=== PATIENT | female | born 1970 | race Caucasian/White ===

== ENCOUNTER 2017-12-08 17:28 | Emergency (ER) | payer MEDICARE, OTHER ==
[~2017-12-08] VITALS: Ht 157.5 cm; Wt 77.1 kg
[~2017-12-08 17:28] MED LIST: ACET325T9 PO; HYDR-971 PO; META-21 PO; NAPR220C4 PO
--- NOTE | 2017-12-08 17:39 | ED.ADGEN ---
Past History Past Medical History: No Pertinent History, Anxiety, Arthritis, Depression Past Surgical History: No Surgical History Smoking: Greater than 1 pack/day Alcohol Use: Rarely Drug Use: None Adult General Chief Complaint Chief Complaint " .. I have chronic back pain.. but I moved.. and loss my pills.. HPI HPI Patient is a 46 year old female who presents with above hx and complaints of back pain rated 10/10. Pt. has chronic pain. Pt. normally follows with Dr. Thorne. Pt. denies fever, immunosuppression, IV drug use or cancer. Pt. complaining of lumbar muscle spasm. Patient does continue to smoke. No problems with defecation or urination. Review of Systems Review of Systems Constitutional: Denies fever or chills [] Eyes: Denies change in visual acuity, redness, or eye pain [] HENT: Denies nasal congestion or sore throat [] Respiratory: Denies cough or shortness of breath [] Cardiovascular: No additional information not addressed in HPI [] GI: Denies abdominal pain, nausea, vomiting, bloody stools or diarrhea [] : Denies dysuria or hematuria [] Musculoskeletal: Complaints of lumbar back pain Integument: Denies rash or skin lesions [] Neurologic: Denies headache, focal weakness or sensory changes [] Endocrine: Denies polyuria or polydipsia [] All other systems were reviewed and found to be within normal limits, except as documented in this note. Family History Family History Noncontributory Current Medications Current Medications Current Medications Medications (Trade) Dose Ordered Sig/Josh Start Time Stop Time Status Last Admin Dose Admin Ketorolac Tromethamine (Toradol) 60 mg 1X ONCE 12/08/17 19:15 12/08/17 19:16 DC 12/08/17 19:55 60 MG Methylprednisolone Acetate (DEPO-Medrol IM) 40 mg 1X ONCE 12/08/17 19:15 12/08/17 19:16 DC 12/08/17 19:55 40 MG Morphine Sulfate (Morphine 10mg Syringe) 10 mg 1X ONCE 12/08/17 19:00 12/08/17 19:04 DC 12/08/17 19:56 10 MG Orphenadrine Citrate (Norflex) 60 mg 1X ONCE 12/08/17 19:15 12/08/17 19:16 DC 12/08/17 19:55 60 MG Allergies Allergies Allergies Coded Allergies Type Severity Reaction Last Updated Verified No Known Drug Allergies 12/08/17 No Physical Exam Physical Exam Constitutional: Moderately acute distress, non-toxic appearance. [] HENT: Normocephalic, atraumatic, bilateral external ears normal, oropharynx moist, no oral exudates, nose normal. [] Eyes: PERRLA, EOMI, conjunctiva normal, no discharge. [] Neck: Normal range of motion, no tenderness, supple, no stridor. [] Cardiovascular:Heart rate regular rhythm, no murmur [] Lungs & Thorax: Bilateral breath sounds equal at apexes with scattered wheezes on auscultation [] Abdomen: Bowel sounds normal, soft, no tenderness, no masses, no pulsatile masses. Old scars. Skin: Warm, dry, no erythema, no rash. [] Back: Lumbar para spinal Muscle tenderness, Old surgery scar, , no CVA tenderness. [] Extremities: No tenderness, no cyanosis, no clubbing, ROM intact, no edema. 30 changes Neurologic: Alert and oriented X 3, normal motor function, normal sensory function, no focal deficits noted. []DTRs +2 at patella. Patient is ambulatory. Psychologic: Anxious, , judgement normal, mood normal. [] Current Patient Data Vital Signs Vital Signs Date Time Temp Pulse Resp B/P (MAP) Pulse Ox O2 Delivery O2 Flow Rate FiO2 12/08/17 20:10 94 18 142/85 (104) 96 Room Air 12/08/17 17:40 98.3 Lab Results Laboratory Tests Test 12/08/17 17:12 12/08/17 18:00 POC Urine HCG, Qualitative hcg negative (Negative) Urine Collection Type Unknown Urine Color Yellow Urine Clarity Hazy Urine pH 6.0 Urine Specific [place] 1.010 Urine Protein Neg (NEG-TRACE) Urine Glucose (UA) Neg mg/dL (NEG) Urine Ketones (Stick) Neg mg/dL (NEG) Urine Blood Trace (NEG) Urine Nitrite Neg (NEG) Urine Bilirubin Neg (NEG) Urine Urobilinogen Dipstick 0.2 mg/dL (0.2 mg/dL) Urine Leukocyte Esterase Neg (NEG) Urine RBC 3-5 /HPF (0-2) Urine WBC 1-4 /HPF (0-4) Urine Squamous Epithelial Cells Many /LPF Urine Bacteria Mod /HPF (0-FEW) Urine Mucus Mod /LPF Urine Opiates Screen Neg (NEG) Urine Methadone Screen Neg (NEG) Urine Barbiturates Neg (NEG) Urine Phencyclidine Screen Neg (NEG) Urine Amphetamine/Methamphetamine Neg (NEG) Urine Benzodiazepines Screen Pos (NEG) Urine Cocaine Screen Neg (NEG) Urine Cannabinoids Screen Neg (NEG) Urine Ethyl Alcohol Neg (NEG) EKG EKG [] Radiology/Procedures Radiology/Procedures I interpretation of x-ray shows no obvious fracture or acute changes in hardware from previous x-rays on file[] Course & Med Decision Making Course & Med Decision Making Pertinent Labs and Imaging studies reviewed. (See chart for details). Further pain meds must be filled through her primary care. Take Tylenol and ibuprofen for pain. For severe pain may take Vicoprofen up 4 times a day. Patient take Flexeril for muscle spasms. [] Final Impression Final Impression 1. Hx. Chronic Back Pain[] Problems: Dragon Disclaimer Dragon Disclaimer This electronic medical record was generated, in whole or in part, using a voice recognition dictation system. YOLANDA WELLER MD Dec 08, 2017 17:39
[2017-12-08 18:55] LABS: AMPHETAMINE/METHAMPHETAMINE NEG (NEG); BARBITURATES NEG (NEG); BENZODIAZEPINES POS (NEG); CANNABINOIDS NEG (NEG); COCAINE NEG (NEG); METHADONE NEG (NEG); OPIATES NEG (NEG); PHENCYCLIDINE NEG (NEG)
[2017-12-08] MEDS ORDERED: MORPHINE SULFATE 10 MG/ML SYRINGE. SQ ONE (19:00)
[2017-12-08 19:11] LABS: BILIRUBIN,URINE NEG (NEG); CLARITY,URINE HAZY; COLOR,URINE YELLOW; GLUCOSE,URINE NEG (NEG)
[2017-12-08 19:12] LABS: BACTERIA,URINE MOD /HPF (0-FEW); NITRITE,URINE NEG (NEG); SQUAMOUS EPITHELIAL CELL,UR MANY /LPF; UROBILINOGEN,URINE 0.2 mg/dL (0.2 mg/dL)
[2017-12-08] MEDS ORDERED: methylPREDNISolone ACETATE 40 MG/ML VIAL. IM ONE (19:15)
[2017-12-08] MEDS ORDERED: ORPHENADRINE CITRATE 60 MG/2 ML VIAL. IM ONE (19:15)
[2017-12-08] MEDS ORDERED: KETOROLAC 60 MG/2 ML VIAL. IM ONE (19:15)
[2017-12-08] MEDS ORDERED: CYCL-331 PO (19:23)
[2017-12-08] MEDS ORDERED: HYDR-79 PO (19:23)
[2017-12-08 20:10] VITALS: BP 142/85
--- NOTE | 2017-12-09 10:07 | RAD ---
LUMBAR SPINE 2-3V Clinical Indication: fall, prior back surgery Comparison: Lumbar radiographs dated 01/17/2007, CT lumbar spine dated 11/26/2014 Findings: There are 5 nonrib-bearing lumbar-type vertebral bodies. T12 riblet better evaluated on prior CT. Postsurgical changes of L5-S1 posterior fusion. No evidence of hardware failure. The normal lumbar lordosis is maintained. 0.5 cm anterolisthesis of L4 on L5, progressed compared to prior CT. Vertebral body heights are maintained. Mild multilevel degenerative changes of the visualized spine. Cholecystectomy clips. Vascular calcifications. IMPRESSION: 1. No acute fracture. 2. 0.5 cm anterolisthesis of L4 on L5, progressed compared to prior CT. 3. Post surgical changes of L5-S1 posterior fusion. No evidence of hardware failure.
== END 2017-12-08 20:10 | disposition home or self-care (01) ==
LOC: ER 17:28
DX: G89.29 Other chronic pain (principal); M54.5 Low back pain; M19.90 Unspecified osteoarthritis, unspecified site; F41.9 Anxiety disorder, unspecified; F32.9 Major depressive disorder, single episode, unspecified; F17.200 Nicotine dependence, unspecified, uncomplicated
CPT/HCPCS: 36415; 72100; 80307; 81001; 81025; 87086; 96372; 99285; J1030; J1885; J2270; J2360; G0479

== ENCOUNTER 2018-03-23 16:49 | Emergency (ER) | payer MEDICARE, OTHER ==
[~2018-03-23] VITALS: Ht 157.5 cm; Wt 77.1 kg
[~2018-03-23 16:49] MED LIST changes: +CYCL-331 PO; +HYDR-79 PO
--- NOTE | 2018-03-23 17:40 | PHYS DOC ---
Past History Past Medical History: No Pertinent History, Anxiety, Arthritis, Depression Past Surgical History: Other Smoking: Greater than 1 pack/day Alcohol Use: None Drug Use: None Adult General Chief Complaint Chief Complaint: FOOT INJURY PAIN HPI HPI Patient is a 47 year old female who presents with complaint of right lower extremity pain. Patient states he days ago she was playing with her grandchildren and states that she jumped into a pool but did not realize she was jumping in the shallow end. Patient states that she struck the bottom of her foot on the pool floor. Patient states that she has been having pain in her right foot that radiates up both sides of her lower leg towards her knee. Patient states that she has been able to ambulate but states she walks with a limp. Patient states that the pain worsens at night time. Patient states she's been taking Tylenol and ibuprofen at home with no relief in symptoms. Patient denies any other injuries. Patient rates pain currently as 8 out of 10 on my evaluation. Review of Systems Review of Systems Constitutional: Denies fever or chills [] Eyes: Denies change in visual acuity, redness, or eye pain [] HENT: Denies nasal congestion or sore throat [] Respiratory: Denies cough or shortness of breath [] Cardiovascular: Denies chest pain or edema[] GI: Denies abdominal pain, nausea, vomiting, bloody stools or diarrhea [] : Denies dysuria or hematuria [] Musculoskeletal: Right foot and lower leg pain[] Integument: Denies rash or skin lesions [] Neurologic: Denies headache, focal weakness or sensory changes [] All other systems were reviewed and found to be within normal limits, except as documented in this note. Allergies Allergies Allergies Coded Allergies Type Severity Reaction Last Updated Verified No Known Drug Allergies 12/08/17 No Physical Exam Physical Exam Constitutional: Alert, afebrile, appears in minimal discomfort. [] HENT: Normocephalic, atraumatic, bilateral external ears normal, oropharynx moist, no oral exudates, nose normal. [] Eyes: PERRLA, EOMI, conjunctiva normal, no discharge. [] Neck: Normal range of motion, no tenderness, supple, no stridor. [] Cardiovascular:Heart rate regular rhythm, no murmur [] Lungs & Thorax: Bilateral breath sounds clear to auscultation [] Abdomen: Bowel sounds normal, soft, no tenderness, no masses, no pulsatile masses. [] Skin: Warm, dry, no erythema, no rash. [] Back: No tenderness, no CVA tenderness. [] Extremities: No obvious deformity to right lower leg or ankle, nonlocalizing tenderness along bilateral malleoli, dorsum of foot, and medial and lateral aspects of the lower leg, no ecchymosis, no swelling, right Achilles tendon intact. [] Neurologic: Alert and oriented X 3, normal motor function, normal sensory function, no focal deficits noted. [] Current Patient Data Vital Signs Vital Signs Date Time Temp Pulse Resp B/P (MAP) Pulse Ox O2 Delivery O2 Flow Rate FiO2 03/23/18 17:35 98.4 121 20 97 Room Air Lab Results Laboratory Tests Test 03/23/18 17:29 Bedside Urine HCG, Qualitative hcg negative EKG EKG Not performed[] Radiology/Procedures Radiology/Procedures Two-view right tibia and fibula x-ray interpreted by me: No fractures, normal alignment, normal soft tissue 3 view right foot x-ray interpreted by me: No fractures, normal alignment, normal soft tissue[] Course & Med Decision Making Course & Med Decision Making Pertinent Labs and Imaging studies reviewed. (See chart for details) X-rays negative for fracture. Symptoms appear consistent with foot contusion. Advised to continue Tylenol as needed. Patient prescribed Naprosyn to take twice daily for the next 5-7 days. Advised follow-up in 1 week with primary doctor for reevaluation and return to emergency department for any worsening symptoms. Patient was understanding and in agreement with treatment plan. Dragon Disclaimer Dragon Disclaimer This electronic medical record was generated, in whole or in part, using a voice recognition dictation system. Departure Departure: Impression: Primary Impression: Foot contusion Disposition: HOME, SELF-CARE Condition: IMPROVED Referrals: FORREST RIVER MD (PCP) Patient Instructions: Foot Contusion Additional Instructions: Follow-up the primary doctor in 1 week for reevaluation. Return to emergency department for any worsening symptoms. Scripts Naproxen (NAPROSYN) 500 Mg Tablet 1 TAB PO BID, #20 TAB 0 Refills Prov: CELE HAND MD 03/23/18 Problem Qualifiers Primary Impression: Foot contusion Encounter type: initial encounter Laterality: right Qualified Codes: S90.31XA - Contusion of right foot, initial encounter CELE HAND MD Mar 23, 2018 17:40
[2018-03-23 18:36] LABS: BACTERIA,URINE FEW /HPF (0-FEW); BILIRUBIN,URINE NEG (NEG); CLARITY,URINE CLEAR; COLOR,URINE YELLOW; GLUCOSE,URINE NEG (NEG); NITRITE,URINE NEG (NEG); SQUAMOUS EPITHELIAL CELL,UR OCC /LPF; UROBILINOGEN,URINE 0.2 mg/dL (0.2 mg/dL); WBC,URINE RARE /HPF (0-4)
[2018-03-23] MEDS ORDERED: NAPR-683 PO (18:36)
[2018-03-23 18:51] VITALS: BP 160/80
--- NOTE | 2018-03-23 18:54 | RAD ---
AP and lateral right tibia and fibula radiographs 03/23/2018 CLINICAL HISTORY: Right lower leg injury when jumping into pool earlier today. AP and lateral digital radiographs of the right tibia and fibula were obtained. No fracture or dislocation of the right tibia or fibula is seen. No radiopaque foreign body is noted. IMPRESSION: No fracture or dislocation of the right tibia or fibula is seen. Electronically signed by: Ovidio Lamb MD (03/23/2018 6:51 PM) [facility]
--- NOTE | 2018-03-23 22:46 | RAD ---
Three-view right foot radiographs 03/23/2018 CLINICAL HISTORY: Right foot injury after jumping into pool earlier today. AP, lateral and oblique digital radiographs of the right foot were obtained. Mild hallux valgus deformity is noted. Mild to moderate degenerative changes are seen involving the first MTP joint. No fracture or dislocation of the right foot is seen. IMPRESSION: No fracture or dislocation of the right foot is seen. Electronically signed by: Ovidio Lamb MD (03/23/2018 10:42 PM) [facility]
== END 2018-03-23 18:52 | disposition home or self-care (01) ==
LOC: ER 16:49
DX: S90.31XA Contusion of right foot, initial encounter (principal); F41.9 Anxiety disorder, unspecified; M19.90 Unspecified osteoarthritis, unspecified site; F32.9 Major depressive disorder, single episode, unspecified; F17.200 Nicotine dependence, unspecified, uncomplicated; W16.022A Fall into swimming pool striking bottom causing other injury, initial encounter; Y93.39 Activity, other involving climbing, rappelling and jumping off; Y92.34 Swimming pool (public) as the place of occurrence of the external cause; Y99.8 Other external cause status
CPT/HCPCS: 73590; 73630; 81001; 81025; 99285-25

== ENCOUNTER 2018-11-30 11:24 | Emergency (ER) | payer MEDICARE ==
[~2018-11-30] VITALS: Ht 157.5 cm; Wt 77.1 kg
[~2018-11-30 11:24] MED LIST changes: +HYDR-1179 PO; +HYDR-3165 PO; -HYDR-79 PO; -HYDR-971 PO; +NAPR-683 PO
[2018-11-30 11:30] VITALS: BP 163/105
--- NOTE | 2018-11-30 11:57 | PHYS DOC ---
Past History Past Medical History: No Pertinent History Past Surgical History: No Surgical History Smoking: Greater than 1 pack/day Alcohol Use: None Drug Use: None Adult General Chief Complaint Chief Complaint: HAND PROBLEM HPI HPI 47-year-old female presents with right hand pain. Patient states that she woke up this morning and had a right hand pain along her thumb. She does not have any idea why it hurts. She denies any trauma. She describes the pain as a cramping sensation. She has no previous history of problems with this hand. She denies fever or chills. She denies numbness or tingling. Review of Systems Review of Systems Constitutional: Denies fever or chills [] Eyes: Denies change in visual acuity, redness, or eye pain [] HENT: Denies nasal congestion or sore throat [] Respiratory: Denies cough or shortness of breath [] Cardiovascular: No additional information not addressed in HPI [] GI: Denies abdominal pain, nausea, vomiting, bloody stools or diarrhea [] : Denies dysuria or hematuria [] Musculoskeletal: right hand pain[] Integument: Denies rash or skin lesions [] Neurologic: Denies headache, focal weakness or sensory changes [] Endocrine: Denies polyuria or polydipsia [] All other systems were reviewed and found to be within normal limits, except as documented in this note. Allergies Allergies Allergies Coded Allergies Type Severity Reaction Last Updated Verified No Known Drug Allergies 12/08/17 No Physical Exam Physical Exam Constitutional: Well developed, well nourished, no acute distress, non-toxic appearance. [] HENT: Normocephalic, atraumatic, bilateral external ears normal, oropharynx moist, no oral exudates, nose normal. [] Eyes: PERRLA, EOMI, conjunctiva normal, no discharge. [] Neck: Normal range of motion, no tenderness, supple, no stridor. [] Cardiovascular:Heart rate regular rhythm, no murmur [] Lungs & Thorax: Bilateral breath sounds clear to auscultation [] Abdomen: Bowel sounds normal, soft, no tenderness, no masses, no pulsatile masses. [] Skin: Warm, dry, no erythema, no rash. [] Back: No tenderness, no CVA tenderness. [] Extremities: Tenderness over thenar eminance and along the anotomical snuff box of right thumb. [] Neurologic: Alert and oriented X 3, normal motor function, normal sensory function, no focal deficits noted. [] Psychologic: Affect normal, judgement normal, mood normal. [] Current Patient Data Vital Signs Vital Signs Date Time Temp Pulse Resp B/P (MAP) Pulse Ox O2 Delivery O2 Flow Rate FiO2 11/30/18 11:30 98.8 120 18 99 Room Air EKG EKG [] Radiology/Procedures Radiology/Procedures [] Impressions: Right hand, 3 views, 11/30/2018: HISTORY: Hand pain, finger numbness No fracture or dislocation is identified. No significant arthritic change is seen. The soft tissues are unremarkable. IMPRESSION: No significant right hand abnormality is detected. Electronically signed by: Jake Enriquez MD (11/30/2018 12:05 PM) [facility] DICTATED AND SIGNED BY: JAKE ENRIQUEZ MD DATE: 11/30/18 1200 CC: PADMINI DANIELS DO; PCP,NO ~ Course & Med Decision Making Course & Med Decision Making Pertinent Labs and Imaging studies reviewed. (See chart for details) The patient's x-rays negative for fracture dislocation. Based on the history and physical exam, patient appears to be having to be de Quervain's tendinitis. She appears to be in a significant amount of pain. I will give her [place] 5/325. I reviewed the drug contract and database the patient appears to have chronic morphine prescribed for her. The prescriptions are consistent and so was the prescriber. He doesn't believe that her current pain is new. I will give her 10 [place] 5/325 for this new pain in addition to her already prescribed medications. I also advised the patient take ibuprofen 600 mg 3 times a day for the next several days as this is most likely to improve her condition. She will follow up with her PCP as needed to consider a steroid injection. [] Dragon Disclaimer Dragon Disclaimer This electronic medical record was generated, in whole or in part, using a voice recognition dictation system. Departure Departure: Impression: Primary Impression: De Querdominickin's tenosynovitis, right Disposition: 01 HOME, SELF-CARE Condition: STABLE Referrals: PCP,NO (PCP) Patient Instructions: De Quervain's Tenosynovitis-[facility] Scripts Hydrocodone Bit/Acetaminophen (NORCO 5-325 TABLET) 1 Each Tablet 1 TAB PO PRN Q6HRS PRN for PAIN, #10 TAB 0 Refills Prov: PADMINI DANIELS DO 11/30/18 PADMINI DANIELS DO Nov 30, 2018 11:57
--- NOTE | 2018-11-30 12:08 | RAD ---
Right hand, 3 views, 11/30/2018: HISTORY: Hand pain, finger numbness No fracture or dislocation is identified. No significant arthritic change is seen. The soft tissues are unremarkable. IMPRESSION: No significant right hand abnormality is detected. Electronically signed by: Jake Enriquez MD (11/30/2018 12:05 PM) [facility]
[2018-11-30] MEDS ORDERED: HYDROcodone/APAP 5/325MG 1 TAB TABLET PO ONE (12:30)
[2018-11-30] MEDS ORDERED: HYDR-3165 PO (12:34)
== END 2018-11-30 12:36 | disposition home or self-care (01) ==
LOC: ER 11:24
DX: M65.4 Radial styloid tenosynovitis [de Quervain] (principal); F17.200 Nicotine dependence, unspecified, uncomplicated
CPT/HCPCS: 29125; 73130; 99284

== ENCOUNTER 2019-05-07 14:43 | Emergency (ER) | payer MEDICARE ==
[~2019-05-07] VITALS: Ht 157.5 cm; Wt 81.5 kg
[2019-05-07 14:52] VITALS: BP 178/109
--- NOTE | 2019-05-07 15:03 | PHYS DOC ---
Past History Past Medical History: No Pertinent History Past Surgical History: No Surgical History Smoking: Greater than 1 pack/day Alcohol Use: None Drug Use: None Adult General Chief Complaint Chief Complaint: HAND PROBLEM HPI HPI Patient is a 48-year-old female who presents with complaint of acute onset of left wrist pain that started last night. She states that while she was asleep, she felt a pop in her wrist and has had pain in her left wrist ever since. She describes pain as stabbing and indicates that she has some numbness and tingling to the tips of the third and fourth digits. She denies any chest pain, shortness breath or fever.[] Review of Systems Review of Systems Constitutional: Denies fever or chills [] Respiratory: Denies cough or shortness of breath [] Cardiovascular: No additional information not addressed in HPI [] Musculoskeletal: Positive left wrist pain [] Integument: Denies rash or skin lesions [] Allergies Allergies Allergies Coded Allergies Type Severity Reaction Last Updated Verified No Known Drug Allergies 12/08/17 No Physical Exam Physical Exam Constitutional: Well developed, well nourished, no acute distress, non-toxic appearance. [] Cardiovascular:Heart rate regular rhythm, no murmur [] Lungs & Thorax: Bilateral breath sounds clear to auscultation [] Skin: Warm, dry, no erythema, no rash. [] Extremities: Examination of left wrist demonstrates tenderness to palpation around the volar aspect of the wrist. There is reported loss of fine touch to the third digit as well as the lateral margin of the fourth digit. [] EKG EKG [] Radiology/Procedures Radiology/Procedures [] Impressions: PROCEDURE: WRIST 3V LEFT EXAM: Left wrist, 3 views. HISTORY: Pain. COMPARISON: None. FINDINGS: 3 views of the left wrist are obtained. There is no fracture, dislocation or subluxation. IMPRESSION: No acute osseous finding. Electronically signed by: Ellen Carvajal MD (05/07/2019 3:21 PM) [facility] Course & Med Decision Making Course & Med Decision Making Pertinent Labs and Imaging studies reviewed. (See chart for details) [] Dragon Disclaimer Dragon Disclaimer This electronic medical record was generated, in whole or in part, using a voice recognition dictation system. Departure Departure: Impression: Primary Impression: Left wrist pain Additional Impression: Carpal tunnel syndrome of left wrist Disposition: 01 HOME, SELF-CARE Condition: STABLE Referrals: PCP,NO (PCP) Patient Instructions: Carpal Tunnel Syndrome, Wrist Pain Scripts Hydrocodone Bit/Acetaminophen (NORCO 5-325 TABLET) 1 Each Tablet 1 TAB PO PRN Q6HRS PRN for PAIN, #12 TAB 0 Refills Prov: REMY BETHEA Jr. DO 05/07/19 Methylprednisolone (MEDROL) 4 Mg Tab.ds.pk 1 PKG PO UD for inflammation, #1 PKG Prov: REMY BETHEA Jr. DO 05/07/19 Problem Qualifiers REMY BETHEA Jr. DO May 07, 2019 15:03
--- NOTE | 2019-05-07 15:24 | RAD ---
EXAM: Left wrist, 3 views. HISTORY: Pain. COMPARISON: None. FINDINGS: 3 views of the left wrist are obtained. There is no fracture, dislocation or subluxation. IMPRESSION: No acute osseous finding. Electronically signed by: Ellen Carvajal MD (05/07/2019 3:21 PM) [place] [id number]
[2019-05-07] MEDS ORDERED: METH4TAB2 PO (15:32)
[2019-05-07] MEDS ORDERED: HYDR-3165 PO (15:32)
[2019-05-07] MEDS ORDERED: HYDROcodone/APAP 5/325MG 1 TAB TABLET PO ONE (15:45)
== END 2019-05-07 15:36 | disposition home or self-care (01) ==
LOC: ER 14:43
DX: G56.02 Carpal tunnel syndrome, left upper limb (principal); F17.200 Nicotine dependence, unspecified, uncomplicated
CPT/HCPCS: 29125; 73110; 99284

== ENCOUNTER 2019-05-28 18:00 | Emergency (ER) | payer MEDICARE ==
[~2019-05-28] VITALS: Ht 157.5 cm; Wt 83.2 kg
[2019-05-28 18:00] VITALS: BP 152/92
[~2019-05-28 18:00] MED LIST changes: +METH4TAB2 PO
[2019-05-28] MEDS ORDERED: IPRATRPIUM/ALBUTEROL 0.5/2.5MG 3 ML NEBU. ONE (18:12)
--- NOTE | 2019-05-28 18:20 | ED.ADGEN ---
Past History Past Medical History: No Pertinent History, Bronchitis, COPD Past Surgical History: No Surgical History Smoking: Greater than 1 pack/day, Second-hand Alcohol Use: None Drug Use: None Adult General Chief Complaint Chief Complaint ".. I am sick... everyone in the house is sick.. I got bronchitis... wheezing.. drainage. .. sore throat...".. " My grandson got flu, my daughter got strep.. son in law got an Upper Respiratory Infection and Sinusitis HPI HPI Patient is a 48 year old female who presents with above hx and complaints non- productive cough, sore throat, wheezing, fever, malaise and arthralgia.. Patient reports multiple family members have been sick with her thank for fluid to strep., Patient no longer smokes but has several years of tobacco abuse. Patient does have a history of recurrent episodes of bronchitis/COPD. Patient is exposed to secondary smoke. No recent travel or specific ill contacts other than family members. No history immunosuppression. Patient states symptoms worsen last 24-48 hours. Patient requesting narcotic cough suppressant. Review of Systems Review of Systems Constitutional: History of fever or chills [] Eyes: Denies change in visual acuity, redness, or eye pain [] HENT: History of nasal congestion and sore throat [] Respiratory: History of cough and wheezing Cardiovascular: No additional information not addressed in HPI [] GI: Denies abdominal pain, nausea, vomiting, bloody stools or diarrhea [] : Denies dysuria or hematuria [] Musculoskeletal: Denies back pain or joint pain [] Integument: Denies rash or skin lesions [] Neurologic: Denies headache, focal weakness or sensory changes [] Endocrine: Denies polyuria or polydipsia [] All other systems were reviewed and found to be within normal limits, except as documented in this note. Family History Family History Multiple family members sick with upper respiratory infections, viral syndrome, bronchitis and one grandson with strep Current Medications Current Medications Current Medications Medications (Trade) Dose Ordered Sig/Josh Start Time Stop Time Status Last Admin Dose Admin Albuterol Sulfate (Ventolin Hfa Inhaler) 2 puff 1X ONCE 05/28/19 19:00 05/28/19 19:01 DC 05/28/19 19:13 2 PUFF Albuterol/ Ipratropium (Duoneb) 3 ml 1X ONCE 05/28/19 18:30 05/28/19 18:31 DC 05/28/19 18:17 3 ML Azithromycin (Zithromax) 500 mg 1X ONCE 05/28/19 19:15 05/28/19 19:16 DC 05/28/19 19:13 500 MG Prednisone (Prednisone) 50 mg 1X ONCE 05/28/19 19:00 05/28/19 19:01 DC 05/28/19 19:14 50 MG See nursing for home meds Allergies Allergies Allergies Coded Allergies Type Severity Reaction Last Updated Verified No Known Drug Allergies 12/08/17 No Physical Exam Physical Exam Constitutional: Moderate acute distress, non-toxic appearance. [] HENT: Normocephalic, atraumatic, bilateral external ears normal, oropharynx moist, injected pharynx, no oral exudates, nose: Turbinates and rhinorrhea Eyes: PERRLA, EOMI, conjunctiva normal, no discharge. [] Neck: Normal range of motion, no tenderness, supple, no stridor. [] Cardiovascular:Heart rate regular rhythm, no murmur [] Lungs & Thorax: Bilateral breath sounds with apex with scattered wheezes throughout auscultation []regional coughing spasms nonproductive Abdomen: Bowel sounds normal, soft, no tenderness, no masses, no pulsatile masses. [] Skin: Warm, dry, no erythema, no rash. [] Back: No tenderness, no CVA tenderness. [] Extremities: No tenderness, no cyanosis, no clubbing, ROM intact, no edema. [] No cording noted Neurologic: Alert and oriented X 3, normal motor function, normal sensory function, no focal deficits noted. [] Psychologic: Affect normal, judgement normal, mood normal. [] Current Patient Data Vital Signs Vital Signs Date Time Temp Pulse Resp B/P (MAP) Pulse Ox O2 Delivery O2 Flow Rate FiO2 05/28/19 18:20 93 Room Air 05/28/19 18:00 98.8 110 20 Lab Results Laboratory Tests Test 05/28/19 18:09 05/28/19 18:13 Group A Streptococcus Rapid Negative (NEGATIVE) Influenza Type A (Rapid) Negative (NEGATIVE) Influenza Type B (Rapid) Negative (NEGATIVE) EKG EKG [] Radiology/Procedures Radiology/Procedures [] Course & Med Decision Making Course & Med Decision Making Pertinent Labs and Imaging studies reviewed. (See chart for details) Pt to push fluids. Take Tylenol and ibuprofen for discomfort or fever. Take prednisone 50 mg day for 5 days. Use MDI 2 puffs 4 times a day. Avoid tobacco smoke. Benadryl 50 mg up 4 times a day for nasal drainage congestion and cough. Zithromax 250 mg daily. Follow-up primary care. Return if any concerns. [] Final Impression Final Impression 1. Bronchitis[]/COPD exacerbation 2. Viral Syndrome 3. Upper Respiratory Infection Dragon Disclaimer Dragon Disclaimer This electronic medical record was generated, in whole or in part, using a voice recognition dictation system. Dragon Disclaimer This chart was dictated in whole or in part using Voice Recognition software in a busy, high-work load, and often noisy Emergency Department environment. It may contain unintended and wholly unrecognized errors or omissions. YOLANDA WELLER MD May 28, 2019 18:20
[2019-05-28] MEDS ORDERED: IPRATRPIUM/ALBUTEROL 0.5/2.5MG 3 ML NEBU. NEB ONE (18:30)
[2019-05-28 18:49] LABS: INFLUENZA A PATIENT NEGATIVE (NEGATIVE); INFLUENZA B PATIENT NEGATIVE (NEGATIVE)
[2019-05-28] MEDS ORDERED: ALBUTEROL SULFATE 8GM INHALER. INH ONE (19:00)
[2019-05-28] MEDS ORDERED: predniSONE 10 MG TABLET PO ONE (19:00)
[2019-05-28] MEDS ORDERED: AZITHROMYCIN 250 MG TABLET. PO ONE (19:15)
[2019-05-28] MEDS ORDERED: PRED50TA PO (19:53)
[2019-05-28] MEDS ORDERED: AZIT250T6 PO (19:53)
== END 2019-05-28 20:19 | disposition home or self-care (01) ==
LOC: ER 18:00
DX: J44.1 Chronic obstructive pulmonary disease with (acute) exacerbation (principal); B34.9 Viral infection, unspecified; J06.9 Acute upper respiratory infection, unspecified; Z77.22 Contact with and (suspected) exposure to environmental tobacco smoke (acute) (chronic)
CPT/HCPCS: 87070; 87804; 87880; 94640; 99284; J0456; J7512; J7613; J7620

== ENCOUNTER 2019-06-08 12:37 | Emergency (ER) | payer MEDICARE ==
[~2019-06-08] VITALS: Ht 157.5 cm; Wt 83.2 kg
[~2019-06-08 12:37] MED LIST changes: +AZIT250T6 PO; +PRED50TA PO
--- NOTE | 2019-06-08 13:00 | PHYS DOC ---
Past History Past Medical History: No Pertinent History, Bronchitis, COPD Past Surgical History: Cholecystectomy Smoking: Greater than 1 pack/day, Second-hand Alcohol Use: None Drug Use: None Adult General Chief Complaint Chief Complaint: LOWER BACK PAIN OR INJURY [facility] Patient is a 48-year-old female who presents with complaint of left-sided lower back pain after falling last night at about 6 PM. Patient was going down some stairs in her apartment and fell down stairs, landing on her left buttock. Patient states that the pain has radiated down the back of her leg some. She denies any loss of bowel or bladder control. She has no saddle anesthesia. She rates pain at a 10 out of 10. She states that pain is worsened with movement.[] Review of Systems Review of Systems Constitutional: Denies fever or chills [] Respiratory: Denies cough or shortness of breath [] Cardiovascular: No additional information not addressed in [facility] [] Musculoskeletal: Complains of left lower back pain [] Integument: Denies rash or skin lesions [] Neurologic: Denies headache, focal weakness or sensory changes [] All other systems were reviewed and found to be within normal limits, except as documented in this note. Allergies Allergies Allergies Coded Allergies Type Severity Reaction Last Updated Verified No Known Drug Allergies 12/08/17 No Physical Exam Physical Exam Constitutional: Well developed, well nourished, no acute distress, non-toxic appearance. [] Neck: Normal range of motion, no tenderness, supple, no stridor. [] Cardiovascular: Regular rate and rhythm[] Lungs & Thorax: Bilateral breath sounds clear to auscultation [] Skin: Warm, dry, no erythema, no rash. [] Back: Patient reports to tenderness to palpation around the left sacral sulcus and left-sided lower lumbar paraspinal musculature. [] Extremities: No tenderness, no cyanosis, no clubbing, ROM intact, no edema. [] Neurologic: Alert and oriented X 3, no focal deficits noted. [] EKG EKG [] Radiology/Procedures Radiology/Procedures [] Impressions: EXAM: Pelvis, single view; lumbar spine, 3 views; sacrum and coccyx, 3 views. HISTORY: Fall. Pain. COMPARISON: 12/08/2017 FINDINGS: 3 views of the lumbar spine and sacrum and coccyx and a single view of the pelvis are obtained. 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 Based on this numbering system, there is instrumented posterior spinal fusion at L5-S1. There is no convincing instrumentation loosening or fracture. There is grade 1 anterolisthesis of L4 and L5, measuring 6 mm. There is degenerative endplate remodeling at multiple levels. There is advanced facet arthropathy at the lower lumbar levels. There are cholecystectomy clips. There is degenerative subchondral sclerosis and vacuum phenomenon involving the sacroiliac joints. The femoral heads are normal in position and configuration. IMPRESSION: 1. Instrumented fusion at L5-S1. 2. Grade 1 anterolisthesis of L4 and L5. 3. Multilevel degenerative change involving the lumbar spine. 4. Degenerative change involving the sacroiliac joints. Electronically signed by: Ellen Carvajal MD (06/08/2019 1:49 PM) [facility] Course & Med Decision Making Course & Med Decision Making Pertinent Labs and Imaging studies reviewed. (See chart for details) [] Dragon Disclaimer Dragon Disclaimer This electronic medical record was generated, in whole or in part, using a voice recognition dictation system. Departure Departure: Impression: Primary Impression: Back contusion Additional Impression: Lumbosacral strain Disposition: HOME, SELF-CARE Condition: STABLE Referrals: PCP,NO (PCP) Patient Instructions: Contusion, Lumbosacral Strain Scripts Orphenadrine Citrate (ORPHENADRINE CITRATE) 100 Mg Tablet.er 1 TAB PO BID PRN for MUSCLE SPASMS, #14 TAB Prov: REMY BETHEA Jr. DO 06/08/19 Acetaminophen With Codeine (TYLENOL WITH CODEINE #3 TABLET) 1 Each Tablet 1 TAB PO PRN Q6HRS PRN for pain MDD 4 Tablet(s), #12 TAB 0 Refills Prov: REMY BETHEA Jr. DO 06/08/19 Problem Qualifiers Primary Impression: Back contusion Encounter type: initial encounter Laterality: left Qualified Codes: S20.222A - Contusion of left back wall of thorax, initial encounter Additional Impression: Lumbosacral strain Encounter type: initial encounter Qualified Codes: S39.012A - Strain of muscle, fascia and tendon of lower back, initial encounter REMY BETHEA Jr. DO Jun 08, 2019 13:00
[2019-06-08] MEDS ORDERED: KETOROLAC 60 MG/2 ML VIAL. IM ONE (13:15)
[2019-06-08] MEDS ORDERED: ORPHENADRINE CITRATE 60 MG/2 ML VIAL. IM ONE (13:15)
--- NOTE | 2019-06-08 13:52 | RAD ---
EXAM: Pelvis, single view; lumbar spine, 3 views; sacrum and coccyx, 3 views. HISTORY: Fall. Pain. COMPARISON: 12/08/2017 FINDINGS: 3 views of the lumbar spine and sacrum and coccyx and a single view of the pelvis are obtained. 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 Based on this numbering system, there is instrumented posterior spinal fusion at L5-S1. There is no convincing instrumentation loosening or fracture. There is grade 1 anterolisthesis of L4 and L5, measuring 6 mm. There is degenerative endplate remodeling at multiple levels. There is advanced facet arthropathy at the lower lumbar levels. There are cholecystectomy clips. There is degenerative subchondral sclerosis and vacuum phenomenon involving the sacroiliac joints. The femoral heads are normal in position and configuration. IMPRESSION: 1. Instrumented fusion at L5-S1. 2. Grade 1 anterolisthesis of L4 and L5. 3. Multilevel degenerative change involving the lumbar spine. 4. Degenerative change involving the sacroiliac joints. Electronically signed by: Ellen Carvajal MD (06/08/2019 1:49 PM) [facility]
[2019-06-08] MEDS ORDERED: ORPH-16 PO (14:04)
[2019-06-08] MEDS ORDERED: ACET-704 PO (14:04)
[2019-06-08 14:07] VITALS: BP 141/102
== END 2019-06-08 14:10 | disposition home or self-care (01) ==
LOC: ER 12:37
DX: S39.012A Strain of muscle, fascia and tendon of lower back, initial encounter (principal); J44.9 Chronic obstructive pulmonary disease, unspecified; Z77.22 Contact with and (suspected) exposure to environmental tobacco smoke (acute) (chronic); W10.8XXA Fall (on) (from) other stairs and steps, initial encounter; Y93.89 Activity, other specified; Y92.89 Other specified places as the place of occurrence of the external cause; Y99.8 Other external cause status
CPT/HCPCS: 72100; 72170; 72220; 96372; 99284; J1885; J2360

== ENCOUNTER 2019-08-03 12:12 | Emergency (ER) | payer MEDICARE ==
[~2019-08-03] VITALS: Ht 157.5 cm; Wt 81.6 kg
[2019-08-03 12:12] VITALS: BP 181/99
[~2019-08-03 12:12] MED LIST changes: +ACET-704 PO; +ORPH-16 PO
[2019-08-03] MEDS: NAPROXEN 500 MG TABLET PO ONE (12:45)
--- NOTE | 2019-08-03 12:46 | PHYS DOC ---
Past History Past Medical History: Bronchitis, COPD, Pneumonia Past Surgical History: Cholecystectomy, Other Additional Past Surgical Histo: LOWER BACK FUSION Smoking: Quit Greater Than 1 Year, Second-hand Alcohol Use: None Drug Use: None Adult General Chief Complaint Chief Complaint: BACK PAIN OR INJURY HPI HPI Patient is a 48-year-old female presents complaining of low back pain and right hand pain after slipping on wet ground, falling backwards on her hand. She is right-hand dominant. Pain in her hand is mostly in the palm area in the area of the thumb and index finger. Worsen pain with movement of her hand, no numbness or tingling in the hand. Patient has had previous low back surgery/fusion. Increased pain with movement. No significant relief with ibuprofen, last dose of ibuprofen was approximately 3:00 this morning. No loss of bowel or bladder control. No weakness, or numbness, or tingling in her lower extremities. Pain is moderate to severe in intensity.[] Review of Systems Review of Systems Constitutional: Denies fever or chills [] Eyes: Denies change in visual acuity, redness, or eye pain [] HENT: Denies nasal congestion or sore throat [] Respiratory: Denies cough or shortness of breath [] Cardiovascular: No chest pain or palpitations[] GI: Denies abdominal pain, nausea, vomiting, bloody stools or diarrhea [] : Denies dysuria or hematuria [] Musculoskeletal: See history of present illness[] Integument: Denies rash or skin lesions [] Neurologic: Denies headache, focal weakness or sensory changes [] Endocrine: Denies polyuria or polydipsia [] All other systems were reviewed and found to be within normal limits, except as documented in this note. Allergies Allergies Allergies Coded Allergies Type Severity Reaction Last Updated Verified No Known Drug Allergies 12/08/17 No Physical Exam Physical Exam Constitutional: Well developed, well nourished, mild to moderate discomfort, non-toxic appearance. [] HENT: Normocephalic, atraumatic, bilateral external ears normal, oropharynx moist, no oral exudates, nose normal. [] Eyes: PERRLA, EOMI, conjunctiva normal, no discharge. [] Neck: Normal range of motion, no tenderness, supple, no stridor. [] Cardiovascular:Heart rate is tachycardic with a regular rhythm, no murmur [] Lungs & Thorax: Bilateral breath sounds clear to auscultation [] Abdomen: Bowel sounds normal, soft, no tenderness, no masses, no pulsatile masses. [] Skin: Warm, dry, no erythema, no rash. [] Back: Diffuse tenderness in her lumbar spinal and paraspinal region. There is no step-off or crepitus. Patient has decreased active range of motion. Scarring present consistent with her previous surgical history of the lumbar spine. Normal gait. no CVA tenderness. [] Extremities: Right hand has tenderness over the thenar eminence palmar surface, as well as the index finger metacarpal. Decreased thumb to index finger secondary to pain. Capillary refills less than 2 seconds. 2. discrimination is less than 5 mm. FDS, FDP, and extensor mechanisms are intact. No wrist tenderne ss. A joint above and a joined below were evaluated and were normal. The other 3 extremities show: No tenderness, no cyanosis, no clubbing, ROM intact, no edema. [] Neurologic: Alert and oriented X 3, normal motor function, normal sensory function, no focal deficits noted. [] Psychologic: Affect normal, judgement normal, mood normal. [] Current Patient Data Vital Signs Vital Signs Date Time Temp Pulse Resp B/P (MAP) Pulse Ox O2 Delivery O2 Flow Rate FiO2 08/03/19 12:12 97.9 110 20 100 Room Air EKG EKG [] Radiology/Procedures Radiology/Procedures PROCEDURE: LUMBAR SPINE 2-3V Examination: 2 views of the lumbar spine HISTORY: History of low back pain, fall COMPARISON: 06/08/2019 Findings/ impression: Lumbosacral hardware is unchanged. The lumbar vertebral body heights are maintained. Grade 1 anterolisthesis of L4 on L5 unchanged. Probable spondylolysis L4. Moderate degenerative changes lumbar spine. PROCEDURE: HAND RIGHT 3V Examination: 3 views of the right hand HISTORY: History of fall, pain COMPARISON: 11/30/2018. FINDINGS: The alignment of the metacarpophalangeal joints, interphalangeal joints grossly appears unremarkable. There is acute fracture or dislocation identified. Impression: No acute osseous findings.[] Course & Med Decision Making Course & Med Decision Making Pertinent Labs and Imaging studies reviewed. (See chart for details) ED course: Patient arrived, was placed in bed, and tolerated exam well. She was given medicine for pain. She was transported to and from radiology with any complications. After the return of the imaging findings, these were discussed with the patient who voiced understanding. All questions were answered. She was discharged in improved condition. Medical decision making: There is no evidence of a fracture, subluxation, neurologic or vascular compromise. No cauda equina syndrome.[] Dragon Disclaimer Dragon Disclaimer This electronic medical record was generated, in whole or in part, using a voice recognition dictation system. Departure Departure: Impression: Primary Impression: Strain of hand and finger, right Additional Impression: Low back pain Disposition: HOME, SELF-CARE Condition: IMPROVED Referrals: PCPIVETT (PCP) Patient Instructions: Back Pain in , Hand Contusion, Hand Injuries Additional Instructions: Follow-up with your regular doctor in 2 days. If you do not have a regular doctor list of local clinics will be provided. Take the medication as prescribed. Return to the ER if worsening pain, loss of bowel or bladder control, or any other concerns. Scripts Orphenadrine Citrate (ORPHENADRINE CITRATE) 100 Mg Tablet.er 100 MG PO BID for BACK PAIN, #20 TAB.SR Prov: PAULINA DEAN DO 08/03/19 Meloxicam (MELOXICAM) 7.5 Mg Tablet 7.5 MG PO DAILY for PAIN, #20 TAB Prov: PAULINA DEAN DO 08/03/19 Problem Qualifiers Primary Impression: Strain of hand and finger, right Encounter type: initial encounter Qualified Codes: S66.911A - Strain of unspecified muscle, fascia and tendon at wrist and hand level, right hand, initial encounter Additional Impression: Low back pain Chronicity: unspecified Back pain laterality: bilateral Sciatica presence: without sciatica Qualified Codes: M54.5 - Low back pain PAULINA DEAN DO Aug 03, 2019 12:46
[2019-08-03 12:53] LABS: U PREG PATIENT NEGATIVE (NEG)
--- NOTE | 2019-08-03 13:02 | RAD ---
Examination: 2 views of the lumbar spine HISTORY: History of low back pain, fall COMPARISON: 06/08/2019 Findings/ impression: Lumbosacral hardware is unchanged. The lumbar vertebral body heights are maintained. Grade 1 anterolisthesis of L4 on L5 unchanged. Probable spondylolysis L4. Moderate degenerative changes lumbar spine. Electronically signed by: Federico Dinero MD (08/03/2019 12:59 PM) [facility]
--- NOTE | 2019-08-03 13:07 | RAD ---
Examination: 3 views of the right hand HISTORY: History of fall, pain COMPARISON: 11/30/2018. FINDINGS: The alignment of the metacarpophalangeal joints, interphalangeal joints grossly appears unremarkable. There is acute fracture or dislocation identified. Impression: No acute osseous findings. Electronically signed by: Federico Dinero MD (08/03/2019 1:04 PM) [facility]
[2019-08-03] MEDS ORDERED: MELO7.5T29 PO (13:17)
[2019-08-03] MEDS ORDERED: ORPH-16 PO (13:17)
== END 2019-08-03 13:30 | disposition home or self-care (01) ==
LOC: ER 12:12
DX: S66.911A Strain of unspecified muscle, fascia and tendon at wrist and hand level, right hand, initial encounter (principal); M54.5 Low back pain; J44.9 Chronic obstructive pulmonary disease, unspecified; Z77.22 Contact with and (suspected) exposure to environmental tobacco smoke (acute) (chronic); W01.0XXA Fall on same level from slipping, tripping and stumbling without subsequent striking against object, initial encounter; Y93.89 Activity, other specified; Y92.89 Other specified places as the place of occurrence of the external cause; Y99.8 Other external cause status
CPT/HCPCS: 72100; 73130; 81025; 99285

== ENCOUNTER 2019-10-29 13:24 | Emergency (ER) | payer MEDICARE ==
[~2019-10-29] VITALS: Ht 157.5 cm; Wt 83.0 kg
[~2019-10-29 13:24] MED LIST changes: +ALPR0.5T PO; +MELO7.5T29 PO; +MORP30TA83 PO
--- NOTE | 2019-10-29 14:07 | RAD ---
AP, lateral, and oblique views of the right hand were performed. History: Fall on outstretched hand Comparison: none. No fracture or dislocation is seen. The joint spaces are normal in appearance. No significant soft tissue swelling is seen. Impression: 1. Negative exam of the right hand. Electronically signed by: Dejan Berumen MD (10/29/2019 2:04 PM) [id number]
[2019-10-29] MEDS ORDERED: DICL50TA4 PO (14:12)
--- NOTE | 2019-10-29 14:12 | PHYS DOC ---
Past History Past Medical History: Bronchitis, COPD, Pneumonia Past Surgical History: Cholecystectomy, Other Additional Past Surgical Histo: LOWER BACK FUSION Smoking: Quit Greater Than 1 Year, Second-hand Alcohol Use: None Drug Use: None Adult General Chief Complaint Chief Complaint: WRIST PAIN [facility] HPI Patient is a 48-year-old female who presents with complaint of right hand and wrist pain after reportedly falling out of bed onto her outstretched hand last night. Patient states the pain is severe and is 10 out of 10. She states the pain is worsened with movement. She denies any other injuries.[] Review of Systems Review of Systems Constitutional: Denies fever or chills [] Respiratory: Denies cough or shortness of breath [] Cardiovascular: No additional information not addressed in HPI [] Musculoskeletal: Positive right hand and wrist pain [] Integument: Denies rash or skin lesions [] Allergies Allergies Allergies Coded Allergies Type Severity Reaction Last Updated Verified No Known Drug Allergies 09/05/19 No Physical Exam Physical Exam Constitutional: Well developed, well nourished, report of pain is far out of proportion to physical findings. [] Neck: Normal range of motion, no tenderness, supple, no stridor. [] Cardiovascular: Regular rate and rhythm[] Lungs & Thorax: Bilateral breath sounds clear to auscultation [] Extremities: Examination of right hand and wrist demonstrates no soft tissue swelling or other external signs of trauma. Patient does report to tenderness diffusely. [] EKG EKG [] Radiology/Procedures Radiology/Procedures [] Course & Med Decision Making Course & Med Decision Making Pertinent Labs and Imaging studies reviewed. (See chart for details) [] Dragon Disclaimer Dragon Disclaimer This electronic medical record was generated, in whole or in part, using a voice recognition dictation system. Departure Departure: Impression: Primary Impression: Sprain of wrist, right Disposition: HOME, SELF-CARE Condition: STABLE Referrals: PCP,NO (PCP) Patient Instructions: Joint Sprain Scripts Diclofenac Sodium (DICLOFENAC SODIUM) 50 Mg Tablet. 1 TAB PO BID PRN for PAIN, #20 TAB Prov: REMY BETHEA Jr. DO 10/29/19 Problem Qualifiers Primary Impression: Sprain of wrist, right Encounter type: initial encounter Qualified Codes: S63.501A - Unspecified sprain of right wrist, initial encounter REMY BETHEA Jr. DO Oct 29, 2019 14:12
[2019-10-29 16:21] VITALS: BP 170/68
== END 2019-10-29 14:30 | disposition home or self-care (01) ==
LOC: ER 13:24
DX: S63.501A Unspecified sprain of right wrist, initial encounter (principal); J44.9 Chronic obstructive pulmonary disease, unspecified; Z77.22 Contact with and (suspected) exposure to environmental tobacco smoke (acute) (chronic); W06.XXXA Fall from bed, initial encounter; Y93.89 Activity, other specified; Y92.89 Other specified places as the place of occurrence of the external cause; Y99.8 Other external cause status
CPT/HCPCS: 29125; 73130; 99283

== ENCOUNTER 2020-09-01 13:25 | Emergency (ER) | payer MEDICARE ==
[~2020-09-01] VITALS: Ht 157.5 cm; Wt 88.0 kg
[~2020-09-01 13:25] MED LIST changes: +DICL50TA4 PO
[2020-09-01 13:35] VITALS: BP 185/117
[2020-09-01] MEDS: IBUPROFEN 600 MG TABLET. PO ONE (14:17)
--- NOTE | 2020-09-01 14:17 | PHYS DOC ---
Past History Past Medical History: No Pertinent History Past Surgical History: No Surgical History Additional Past Surgical Histo: LOWER BACK FUSION Smoking: Quit Greater Than 1 Year, Second-hand Alcohol Use: None Drug Use: None General Adult EDM: Chief Complaint: WRIST PAIN HPI: HPI: Patient is a 49-year-old female who presents with left wrist and forearm pain. 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 Patient states that pain started yesterday. Patient has been taking Tylenol at home with little relief. Patient has full range of motion. Pain is aggravated by adduction and abduction. Review of Systems: Review of Systems: Constitutional: Denies fever or chills Eyes: Denies change in visual acuity HENT: Denies nasal congestion or sore throat Respiratory: Denies cough or shortness of breath Cardiovascular: Denies chest pain or edema GI: Denies abdominal pain, nausea, vomiting, bloody stools or diarrhea : Denies dysuria Musculoskeletal: Reports left wrist and forearm pain Integument: Denies rash Neurologic: Denies headache, focal weakness or sensory changes Endocrine: Denies polyuria or polydipsia Lymphatic: Denies swollen glands Psychiatric: Denies depression or anxiety Current Medications: Current Meds: Current Medications Medications (Trade) Dose Ordered Sig/Josh Start Time Stop Time Status Last Admin Dose Admin Ibuprofen (Motrin) 600 mg 1X ONCE 09/01/20 13:45 09/01/20 13:46 DC Allergies: Allergies: Allergies Coded Allergies Type Severity Reaction Last Updated Verified No Known Drug Allergies 09/01/20 No Physical Exam: PE: Constitutional: Well developed, well nourished, no acute distress, non-toxic appearance. [] HENT: Normocephalic, atraumatic, bilateral external ears normal, oropharynx moist, no oral exudates, nose normal. [] Eyes: PERRLA, EOMI, conjunctiva normal, no discharge. [] Neck: Normal range of motion, no tenderness, supple, no stridor. [] Cardiovascular:Heart rate regular rhythm, no murmur [] Lungs & Thorax: Bilateral breath sounds clear to auscultation [] Abdomen: Bowel sounds normal, soft, no tenderness, no masses, no pulsatile masses. [] Skin: Warm, dry, no erythema, no rash. [] Back: No tenderness, no CVA tenderness. [] Extremities: Tenderness to left wrist and forearm, range of motion intact, no swelling Neurologic: Alert and oriented X 3, normal motor function, normal sensory function, no focal deficits noted. [] Psychologic: Affect normal, judgement normal, mood normal. [] Current Patient Data: Vital Signs: Vital Signs Date Time Temp Pulse Resp B/P (MAP) Pulse Ox O2 Delivery O2 Flow Rate FiO2 09/01/20 13:35 97.9 100 18 185/117 (139) 100 EKG: EKG: [] Radiology/Procedures: Radiology/Procedures: []XR LT WRIST 3VIEWS, XR FOREARM_LEFT 2 VIEWS History: Reason: PAIN LEFT FOREARM and wrist, NKI / Spl. Instructions: / History: Technique: 2 views left forearm and 3 views left wrist. Comparison: None. Findings: Normal alignment of the forearm. No fracture. No significant elbow joint effusion. Normal alignment of the wrist. No fracture. Impression: 1. No acute osseous abnormality. Electronically signed by: Rogers Almonte DO (09/01/2020 2:18 PM) [id number] Heart Score: Risk Factors: Risk Factors: DM, Current or recent (<one month) smoker, HTN, HLP, family history of CAD, obesity. Risk Scores: Score 0 - 3: 2.5% MACE over next 6 weeks - Discharge Home Score 4 - 6: 20.3% MACE over next 6 weeks - Admit for Clinical Observation Score 7 - 10: 72.7% MACE over next 6 weeks - Early Invasive Strategies Course & Med Decision Making: Course & Med Decision Making Pertinent Labs and Imaging studies reviewed. (See chart for details) [] Patient is a 49-year-old female who presents with left wrist and forearm pain. 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 Patient states that pain started yesterday. Patient has been taking Tylenol at home with little relief. Patient has full range of motion. Pain is aggravated by adduction and abduction. X-ray left wrist and forearm ordered to rule out fracture. 600 mg ibuprofen given for pain. X-ray of wrist and forearm normal. No fracture. No significant elbow joint effusion. DC home with instructions for RICE. Ibuprofen for pain. 1. Wrist Sprain 2. Wrist fracture Tai Disclaimer: Tai Disclaimer: This electronic medical record was generated, in whole or in part, using a voice recognition dictation system. Departure Departure: Impression: Primary Impression: Wrist pain, left Disposition: 01 DC HOME SELF CARE/HOMELESS Condition: GOOD Referrals: PCP,NO (PCP) Patient Instructions: Wrist Pain, [id number] Additional Instructions: The room today for left wrist and forearm pain. X-ray shows No acute osseous abnormality. Please take ibuprofen at home for discomfort. Also use ice the area to decrease swelling and pain. Return to emergency room for any worsening symptoms or concerns. EMERGENCY DEPARTMENT GENERAL DISCHARGE INSTRUCTIONS Thank you for coming to [facility] (ED) today and trusting us with you care. We trust that you had a positivie experience in our Emergency Department. If you wish to speak to the department management, you may call the director at [phone]. YOUR FOLLOW UP INSTRUCTIONS ARE FOLLOWS: 1. Do you have a private Doctor? If you do not have a private doctor, please ask for a resource list of physicians or clinics that may be able to assist you with follow up care. 2. The Emergency Physician has interpreted your x-rays. The X-Ray specialist will also review them. If there is a change in the findings, you will be notified in 48 hours when at all possible. 3. A lab test or culture has been done, your results will be reviewed and you will be notified if you need a change in treatment. ADDITIONAL INSTRUCTIONS AND INFORMATION: 1. Your care today has been supervised by a physician who is specially trained in emergency care. Many problems require more than one evaluation for a complete diagnosis and treatment. We recommend that you schedule your follow up appointment as recommended to ensure complete treatment of you illness or injury. If you are unable to obtain follow up care and continue to have a problem, or if your condition worsens, we recommend that you return to the ED. 2. We are not able to safely determine your condition over the phone nor are we able to give sound medical advice over the phone. For these safety reasons, if you call for medical advice we will ask you to come to the ED for further evaluation. 3. If you have any questions regarding these discharge instructions please call the ED at [phone]. SAFETY INFORMATION: In the interest of safety, wellness, and injury prevention; we encourage you to wear your sealbelt, if you smoke; quite smoking, and we encourage family to use a protective helmet for bicycling and other sporting events that present an increased risk for head injury. IF YOUR SYMPTOMS WORSEN OR NEW SYMPTOMS DEVELOP, OR YOU HAVE CONCERNS ABOUT YOUR CONDITION; OR IF YOUR CONDITION WORSENS WHILE YOU ARE WAITING FOR YOUR FOLLOW UP APPOINTMENT; EITHER CONTACT YOUR PRIMARY CARE DOCTOR, THE PHYSICIAN WHOSE NAME AND NUMBER YOU WERE GIVEN, OR RETURN TO THE ED IMMEDIATELY. KRISTINE LINARES APRN Sep 01, 2020 14:17
--- NOTE | 2020-09-01 14:21 | RAD ---
XR LT WRIST 3VIEWS, XR FOREARM_LEFT 2 VIEWS History: Reason: PAIN LEFT FOREARM and wrist, NKI / Spl. Instructions: / History: Technique: 2 views left forearm and 3 views left wrist. Comparison: None. Findings: Normal alignment of the forearm. No fracture. No significant elbow joint effusion. Normal alignment of the wrist. No fracture. Impression: 1. No acute osseous abnormality. Electronically signed by: Rogers Almonte DO (09/01/2020 2:18 PM) [id number]
== END 2020-09-01 14:50 | disposition home or self-care (01) ==
LOC: ER 13:25
DX: S62.102A Fracture of unspecified carpal bone, left wrist, initial encounter for closed fracture (principal); Z77.22 Contact with and (suspected) exposure to environmental tobacco smoke (acute) (chronic); X50.9XXA Other and unspecified overexertion or strenuous movements or postures, initial encounter; Y93.89 Activity, other specified; Y92.89 Other specified places as the place of occurrence of the external cause; Y99.8 Other external cause status
CPT/HCPCS: 73090; 73110; 99284

== ENCOUNTER 2021-04-23 22:34 | Emergency (ER) | payer MEDICARE ==
[~2021-04-23] VITALS: Ht 157.5 cm; Wt 88.0 kg
--- NOTE | 2021-04-23 22:40 | PHYS DOC ---
Past History Past Medical History: No Pertinent History Past Surgical History: No Surgical History, Lumbar Laminectomy Additional Past Surgical Histo: LOWER BACK FUSION Smoking: Quit Greater Than 1 Year, Second-hand Alcohol Use: None Drug Use: None General Adult HPI: HPI: ".. I slipped and fell in the bathroom.....:and hurt my back.. and now I am having lots of back spasms..." Patient is a 50 year old female who presents with above hx and complaints back spasms after a slip and fall in bathroom. Pt. complaining of severe Lumbar sacral pain., Patient complaining of back spasms. Distal neurovascular intact. No saddle loss. Has urinated since the fall. No recent travel. No specific ill contacts. No history of immunosuppression. No history of cancer. No history of IV drug use. No history of fever or chills. Patient localizes pain to the lumbar sacral area. Some radiation to left sciatic nerve. Patient has past medical history of COPD, bronchitis, is a 1 pack a day smoker. Review of Systems: Review of Systems: Constitutional: Denies fever or chills Eyes: Denies change in visual acuity HENT: Denies nasal congestion or sore throat Respiratory: Denies cough or shortness of breath Cardiovascular: Denies chest pain or edema GI: Denies abdominal pain, nausea, vomiting, bloody stools or diarrhea : Denies dysuria Musculoskeletal: Complaining of back pain Integument: Denies rash Neurologic: Denies headache, focal weakness or sensory changes Endocrine: Denies polyuria or polydipsia Lymphatic: Denies swollen glands Psychiatric: Denies depression or anxiety Family History: Family History: Noncontributory to presentation Current Medications: Current Meds: See nursing for home meds Allergies: Allergies: Allergies Coded Allergies Type Severity Reaction Last Updated Verified No Known Drug Allergies 09/01/20 No Physical Exam: PE: Constitutional: Moderate acute distress, non-toxic appearance. [] HENT: Normocephalic, atraumatic, bilateral external ears normal, oropharynx moist, no oral exudates, nose normal. [] Eyes: PERRLA, EOMI, conjunctiva normal, no discharge. [] Neck: Normal range of motion, no tenderness, supple, no stridor. [] Cardiovascular:Heart rate regular rhythm, no murmur [] Lungs & Thorax: Bilateral breath sounds clear to auscultation [] Abdomen: Bowel sounds normal, soft, no tenderness, no masses, no pulsatile masses. Obese. Old surgeries scar. Skin: Warm, dry, no erythema, no rash. [] Back: Lumbar sacral muscle tenderness, no CVA tenderness. [] Some tenderness along left sciatic nerve. Old surgery scar. Extremities: No tenderness, no cyanosis, no clubbing, ROM intact, no edema. [] Neurologic: Alert and oriented X 3, normal motor function, normal sensory function, no focal deficits noted. [] DTRs +2 patella and brachial. Psychologic: Affect anxious, judgement normal, mood normal. [] EKG: EKG: [] Radiology/Procedures: Radiology/Procedures: [][address] [address] IMAGING REPORT Signed PATIENT: BRENT CORDERO RACCOUNT: [id number] : 1970 LOCATION: ER AGE: 50 SEX: F EXAM STATUS: REG ER ORD. PHYSICIAN: YOLANDA WELLER MD REASON: SLIP AND FALL.BACK PAIN. HX L5-S-1 SX PROCEDURE: CT LUMBAR SPINE WO CONTRAST CT lumbar spine without contrast: Reason for examination slipped and fell with back pain. History of L5-S1 surgery. Helical images were obtained through the lumbar spine with no contrast administered. Reconstruction was performed in sagittal and coronal planes. Exposure: One or more of the following individualized dose reduction techniques were utilized for this examination: 1. Automated exposure control 2. Adjustment of the mA and/or kV according to patient size 3. Use of iterative reconstruction technique. There are postop changes with pedicle screws and rods present at the L5-S1 level. There is a 3 mm anterolisthesis of L4 on L5. No acute fracture or other site of subluxation is evident. Posterior elements appear to be intact. There does not appear to be significant stenosis from T12 through L4. Artifact from the surgical hardware obscures canal of the lower lumbar spine and sacrum. No acute bony abnormality seen at the sacrum or at the sacroiliac joints. IMPRESSION: Postop changes with pedicle screws and rods at the L5-S1 level. No acute fracture is seen. Mild 3 mm anterolisthesis of L4 on L5. No apparent spinal stenosis from T12 through L4 but the spinal canal in the lower lumbar spine is obscured by the artifact from hardware. Electronically signed by: Chantal Salazar MD (04/24/2021 1:04 AM) [facility] DICTATED AND SIGNED BY: CHANTAL SALAZAR MD DATE: 04/24/21 0100 CC: YOLANDA WELLER MD; PCP,NO ~MTH0 0 Heart Score: C/O Chest Pain: N/A Risk Factors: Risk Factors: DM, Current or recent (<one month) smoker, HTN, HLP, family histo ry of CAD, obesity. Risk Scores: Score 0 - 3: 2.5% MACE over next 6 weeks - Discharge Home Score 4 - 6: 20.3% MACE over next 6 weeks - Admit for Clinical Observation Score 7 - 10: 72.7% MACE over next 6 weeks - Early Invasive Strategies Course & Med Decision Making: Course & Med Decision Making Pertinent Labs and Imaging studies reviewed. (See chart for details) Pt. to use ice packs as needed. Take tylenol and ibuprofen for pain. Take Vicoprofen for marked pain. Take Flexeril for spasms. Follow up with primary. If continue pain follow up with your neuro surgery.. \\ Impression: 1. Slip and Flall 2. Contusion 3. Sprain and Strain [] Dragon Disclaimer: Tai Disclaimer: This electronic medical record was generated, in whole or in part, using a voice recognition dictation system. Departure Departure: Referrals: PCP,NO (PCP) Scripts Cyclobenzaprine Hcl (CYCLOBENZAPRINE HCL) 10 Mg Tablet 10 MG PO TID PRN for spasms, #30 TAB Prov: YOLANDA WELLER MD 04/24/21 Hydrocodone/Ibuprofen (HYDROCODONE-IBUPROFEN 7.5-200 ) 1 Each Tablet 1 TAB PO PRN Q6HRS PRN for PAIN, #30 TAB 0 Refills Prov: YOLANDA WELLER MD 04/24/21 Dragon Disclaimer This chart was dictated in whole or in part using Voice Recognition software in a busy, high-work load, and often noisy Emergency Department environment. It may contain unintended and wholly unrecognized errors or omissions. YOLANDA WELLER MD Apr 23, 2021 22:40
[2021-04-23] MEDS ORDERED: MORPHINE SULFATE 10 MG/ML SYRINGE. SQ ONE (23:45)
[2021-04-23] MEDS ORDERED: KETOROLAC 30 MG/ML VIAL. IVP ONE (23:45)
[2021-04-23] MEDS ORDERED: LORazepam 1 MG TABLET PO ONE (23:45)
[2021-04-24 00:51] LABS: BILIRUBIN,URINE NEG (NEG); CLARITY,URINE HAZY; COLOR,URINE YELLOW; GLUCOSE,URINE NEG (NEG); NITRITE,URINE NEG (NEG); RBC,URINE 0 /HPF (0-2); UROBILINOGEN,URINE 0.2 mg/dL (0.2 mg/dL)
[2021-04-24 00:52] LABS: BACTERIA,URINE FEW /HPF (0-FEW); SQUAMOUS EPITHELIAL CELL,UR FEW /LPF
--- NOTE | 2021-04-24 01:06 | RAD ---
CT lumbar spine without contrast: Reason for examination slipped and fell with back pain. History of L5-S1 surgery. Helical images were obtained through the lumbar spine with no contrast administered. Reconstruction w as performed in sagittal and coronal planes. Exposure: One or more of the following individualized dose reduction techniques were utilized for thi s examination: 1. Automated exposure control 2. Adjustment of the mA and/or kV according to patient size 3. Use of iterative reconstruction technique. There are postop changes with pedicle screws and rods present at the L5-S1 level. There is a 3 mm ant erolisthesis of L4 on L5. No acute fracture or other site of subluxation is evident. Posterior elemen ts appear to be intact. There does not appear to be significant stenosis from T12 through L4. Artifac t from the surgical hardware obscures canal of the lower lumbar spine and sacrum. No acute bony abnor mality seen at the sacrum or at the sacroiliac joints. IMPRESSION: Postop changes with pedicle screws and rods at the L5-S1 level. No acute fracture is seen. Mild 3 mm anterolisthesis of L4 on L5. No apparent spinal stenosis from T12 through L4 but the spinal canal in the lower lumbar spine is obs cured by the artifact from hardware. Electronically signed by: Chantal Reyes MD (04/24/2021 1:04 AM) [facility]
[2021-04-24] MEDS ORDERED: HYDR-1179 PO (01:41)
[2021-04-24] MEDS ORDERED: CYCL-331 PO (01:41)
[2021-04-24 01:55] VITALS: BP 115/57
[2021-04-24] MEDS ORDERED: MORPHINE SULFATE 10 MG/ML SYRINGE. SQ ONE (02:00)
[2021-04-24] MEDS ORDERED: ORPHENADRINE CITRATE 60 MG/2 ML VIAL. IM ONE (02:00)
== END 2021-04-24 01:59 | disposition home or self-care (01) ==
LOC: ER 22:34
DX: S39.012A Strain of muscle, fascia and tendon of lower back, initial encounter (principal); M54.42 Lumbago with sciatica, left side; Z87.891 Personal history of nicotine dependence; W01.0XXA Fall on same level from slipping, tripping and stumbling without subsequent striking against object, initial encounter; Y93.89 Activity, other specified; Y92.091 Bathroom in other non-institutional residence as the place of occurrence of the external cause; Y99.8 Other external cause status
CPT/HCPCS: 72131; 81001; 87086; 96372; 96374; 99285; J1885; J2270; J2360

== ENCOUNTER 2021-07-03 09:19 | Emergency (ER) | payer MEDICARE ==
[~2021-07-03] VITALS: Ht 157.5 cm; Wt 88.0 kg
[~2021-07-03 09:19] MED LIST changes: -CYCL-331 PO; +CYCL10TA19 PO
[2021-07-03 09:26] VITALS: BP 153/97
== END 2021-07-03 10:16 | disposition left against medical advice (07) ==
LOC: ER 09:19
DX: R05.9 Cough, unspecified (principal); Z53.21 Procedure and treatment not carried out due to patient leaving prior to being seen by health care provider

== ENCOUNTER 2021-11-24 08:45 | Emergency (ER) | payer MEDICARE ==
[~2021-11-24] VITALS: Ht 157.5 cm; Wt 88.0 kg
--- NOTE | 2021-11-24 08:56 | PHYS DOC ---
Past History Past Medical History: No Pertinent History Additional Past Medical Histor: chronic back pain Past Surgical History: Lumbar Laminectomy, Other Additional Past Surgical Histo: LOWER BACK FUSION Smoking: Cigarettes, Quit Greater Than 1 Year, Second-hand Alcohol Use: None Drug Use: None General Adult EDM: Chief Complaint: BACK PAIN OR INJURY HPI: HPI: Patient is a 50-year-old female who presents with low back pain, mostly on the left side. Symptoms began yesterday when she fell down 1 or 2 steps. This happ ened yesterday evening. She denies radiation of pain, denies numbness or tingling or focal motor weakness. She denies abdominal pain. She denies urinary symptoms. She denies incontinence of bowel or bladder. She denies fevers or chills. She has a history of chronic back pain, she has had previous surgery. She denies any new injury or trauma since that time. She describes a mechanical trip and fall, denies premonitory symptoms, dizziness, syncope, head injury. She denies upper back pain, neck pain, headache, dizziness, vertigo symptoms. She took naproxen yesterday, with minimal relief. No meds taken today. Review of Systems: Review of Systems: Constitutional: Denies fever or chills HENT: Denies facial injury, sore throat, congestion symptoms Respiratory: Denies cough or shortness of breath Cardiovascular: Denies chest pain or edema GI: Denies abdominal pain, nausea, vomiting, diarrhea or incontinence : Denies urinary symptoms, gross hematuria or incontinence Musculoskeletal: Low back pain. Denies joint pain or swelling. Integument: Denies rash or wounds. Neurologic: Denies headache, focal weakness or sensory changes, denies dizziness, vertigo, head injury, syncope Psychiatric: Denies depression or anxiety Allergies: Allergies: Allergies Coded Allergies Type Severity Reaction Last Updated Verified No Known Drug Allergies 09/01/20 No Physical Exam: PE: Constitutional: Well developed, well nourished, no acute distress, non-toxic appearance. [] HENT: Normocephalic, atraumatic Eyes: Conjunctive are normal, no scleral icterus Neck: Trachea midline, full range of motion Cardiovascular:Heart rate regular rhythm, +2 radial and +2 posterior tibial pulses bilaterally Lungs & Thorax: Bilateral breath sounds clear to auscultation [] Abdomen: Abdomen is obese, soft, nondistended, nontender to palpation Skin: Warm, dry, no erythema, no rash. No open wounds, no lacerations Back: Limited range of motion secondary to pain, no deformity. Midline lumbar scar from previous surgery is clean, dry, intact. Left-sided lumbar paraspinal soft tissue tenderness to palpation. Palpation reproduces pain. No midline tenderness or step-offs. No wounds, abrasions, erythema or warmth. Extremities: No tenderness, no cyanosis, no clubbing, ROM intact, no edema. [] Neurologic: Awake, alert, oriented x3, no facial asymmetry, 5 out of 5 motor strength all 4 extremities. No foot drop. DTR 2/4 bilateral lower extremities. Sensation is grossly intact. Speech is clear and fluent. Gait mildly antalgic but steady, no limb or gait ataxia. Psychologic: Affect normal, judgement normal, mood normal. [] EKG: EKG: [] Radiology/Procedures: Radiology/Procedures: IMAGING REPORT Signed PATIENT: BRENT CORDERO RACCOUNT: [id number] : 1970 LOCATION: ER AGE: 50 SEX: F EXAM STATUS: REG ER ORD. PHYSICIAN: DAGMAR LAU DO REASON: fall, pain PROCEDURE: LUMBAR SPINE 2-3V XR LUMBAR SPINE 2-3V History: Fall, pain Comparison: 08/03/2019 Technique: 3 views of the lumbar spine. Findings: There are 5 non-rib bearing lumbar vertebral segments. There are rudimentary ribs at T12. Postsurgical features from L5-S1 posterior spinal fixation. There is no evidence of fracture. No destructive osseous lesions. Mild anterolisthesis of L4 on L5 with degenerative disc and facet disease greatest at this level, with suggestion of mild progression from 2019. Mild degenerative disc and facet disease at L3-L4. Sacroiliac joints are unremarkable. Right upper quadrant cholecystectomy clips. IMPRESSION: 1. No acute findings in the lumbar spine. 2. Postsurgical changes from L5-S1 posterior spinal fixation. 3. Mild progression of adjacent segment degenerative disease at L4-L5 with facet hypertrophy, and mild anterolisthesis. Electronically signed by: Mauro Carson MD (11/24/2021 9:25 AM) [id number] DICTATED AND SIGNED BY: MAURO CARSON MD DATE: 11/24/21 09 CC: DAGMAR LAU DO; PCP,NO ~ IMAGING REPORT Signed PATIENT: BRENT CORDERO: [id number] : 1970 LOCATION: ER AGE: 50 SEX: F EXAM STATUS: REG ER ORD. PHYSICIAN: DAGMAR LAU DO REASON: left flank pain PROCEDURE: CT ABDOMEN PELVIS WO CONTRAST Examination: CT of the abdomen pelvis without contrast HISTORY: History of left flank pain COMPARISON: None available TECHNIQUE: Axial CT images of the abdomen pelvis were performed without contrast. Coronal and sagittal reformats are performed Exposure: One or more of the following individualized dose reduction techniques were utilized for this examination: 1. Automated exposure control 2. Adjustment of the mA and/or kV according to patient size 3. Use of iterative reconstruction technique FINDINGS: The bibasilar lungs are clear. No evidence of free air identified in the abdomen.The evaluation of the solid organs is limited due to lack of IV contrast. The evaluation of bowel is limited due to lack of oral contrast. Mild decreased attenuation noted in the liver likely hepatic steatosis. Cholecystectomy changes identified. The spleen, adrenals grossly appears unremarkable. The stomach is mildly distended. The visualized pancreas grossly appears unremarkable. Mild air distended small bowel loops left mid abdomen.. Liquid stool identified in the colon. No evidence of intrarenal collecting system calculi or hydronephrosis. Enlarged appearing uterus particularly in the fundus could be moderate size fibroid. Urinary bladder is mildly distended Moderate aortic atherosclerosis Moderate degenerative changes lumbar spine. Lumbosacral hardware identified at L5-S1 vertebral level. IMPRESSION: 1. No evidence of intrarenal collecting system calculi or hydronephrosis. 2. Mild air distended small bowel loops left mid abdomen, nonspecific, could be mild enteritis. Liquid stool identified in the colon could be due to diarrhea. 3. Enlarged appearing uterus particularly in the fundus likely moderate size fibroid. Electronically signed by: Federico Dinero MD (11/24/2021 11:03 AM) [id number] DICTATED AND SIGNED BY: FEDERICO DINERO MD DATE: 11/24/21 1055 CC: DAGMAR LAU DO; PCP,NO ~ Heart Score: C/O Chest Pain: No Risk Factors: Risk Factors: DM, Current or recent (<one month) smoker, HTN, HLP, family history of CAD, obesity. Risk Scores: Score 0 - 3: 2.5% MACE over next 6 weeks - Discharge Home Score 4 - 6: 20.3% MACE over next 6 weeks - Admit for Clinical Observation Score 7 - 10: 72.7% MACE over next 6 weeks - Early Invasive Strategies Course & Med Decision Making: Course & Med Decision Making Pertinent Labs and Imaging studies reviewed. (See chart for details) The patient is given IM Toradol, IM morphine, Lidoderm patch, p.o. Flexeril and p.o. Hope. She is resting much more comfortably, reports feeling much better. X-ray is unremarkable for acute fracture. CT was ordered secondary to scant amount of hematuria. CT is unremarkable. She has a benign exam. No red flag signs or symptoms. No indication for further invasive exams, emergent imaging, admission. I discussed home care instructions with her. Return precautions are given. She has a scheduled appointment to see her PCP on Monday. I told her to keep this appointment, and if she needs any further outpatient referrals or work-up or imaging, that should be discussed at that time. She verbalizes understanding of instructions, she is discharged in stable and improved condition. Tai Disclaimer: Tai Disclaimer: This electronic medical record was generated, in whole or in part, using a voice recognition dictation system. Departure Departure: Impression: Primary Impression: Low back pain Qualified Codes: M54.50 - Low back pain, unspecified Disposition: HOME / SELF CARE / HOMELESS Condition: STABLE Referrals: PCP,NO (PCP) Patient Instructions: Back Pain, Adult Additional Instructions: Use the pain medicine as needed/as directed. You may alternate ice and heat, form gentle stretching. Return to the ER for more severe pain, weakness, incontinence, temperature 100.4 or higher, severe abdominal pain, vomiting or other concerns. Keep your scheduled appointment with your primary care doctor on Monday. Scripts Lidocaine (Lido Ahsan) 1 Each Adh..patch 1 EACH TP DAILY for pain, #10 PATCH remove after 12 hours Prov: DAGMAR LAU DO 11/24/21 Hydrocodone Bit/Acetaminophen (HYDROCODONE-APAP 5-325 ) 1 Each Tablet 1 TAB PO PRN Q6HRS PRN for PAIN, #15 TAB 0 Refills Prov: DAGMAR LAU DO 11/24/21 Cyclobenzaprine Hcl (CYCLOBENZAPRINE HCL) 10 Mg Tablet 1 TAB PO BID for muscle spasm, #20 TAB Prov: DAGMAR LAU DO 11/24/21 DAGMAR LAU DO Nov 24, 2021 08:56
[2021-11-24 08:57] VITALS: BP 158/97
[2021-11-24] MEDS ORDERED: KETOROLAC 30 MG/ML VIAL. IM ONE (09:15)
[2021-11-24] MEDS ORDERED: CYCLOBENZAPRINE 10 MG TABLET. PO ONE (09:15)
[2021-11-24] MEDS ORDERED: LIDOCAINE (700MG/PATCH) PATCH. TD ONE (09:15)
--- NOTE | 2021-11-24 09:27 | RAD ---
XR LUMBAR SPINE 2-3V History: Fall, pain Comparison: 08/03/2019 Technique: 3 views of the lumbar spine. Findings: There are 5 non-rib bearing lumbar vertebral segments. There are rudimentary ribs at T12. Postsurgical features from L5-S1 posterior spinal fixation. There is no evidence of fracture. No destructive osseous lesions. Mild anterolisthesis of L4 on L5 with degenerative disc and facet disease greatest at this level, wit h suggestion of mild progression from 2019. Mild degenerative disc and facet disease at L3-L4. Sacroiliac joints are unremarkable. Right upper quadrant cholecystectomy clips. IMPRESSION: 1. No acute findings in the lumbar spine. 2. Postsurgical changes from L5-S1 posterior spinal fixation. 3. Mild progression of adjacent segment degenerative disease at L4-L5 with facet hypertrophy, and mi ld anterolisthesis. Electronically signed by: Mauro Harper MD (11/24/2021 9:25 AM) [id number]
[2021-11-24] MEDS ORDERED: MORPHINE SULFATE 4 MG/ML DISP.SYRIN. IM ONE (09:45)
[2021-11-24 09:59] LABS: BACTERIA,URINE 0 /HPF (0-FEW); CLARITY,URINE CLEAR; COLOR,URINE YELLOW; GLUCOSE,URINE NEG (NEG); NITRITE,URINE NEG (NEG); RBC,URINE OCC /HPF (0-2); SQUAMOUS EPITHELIAL CELL,UR FEW /LPF; UROBILINOGEN,URINE 0.2 mg/dL (0.2 mg/dL)
[2021-11-24 10:00] LABS: AMORPHOUS SEDIMENT,UR PRESENT /HPF
--- NOTE | 2021-11-24 11:06 | RAD ---
Examination: CT of the abdomen pelvis without contrast HISTORY: History of left flank pain COMPARISON: None available TECHNIQUE: Axial CT images of the abdomen pelvis were performed without contrast. Coronal and sagitta l reformats are performed Exposure: One or more of the following individualized dose reduction techniques were utilized for thi s examination: 1. Automated exposure control 2. Adjustment of the mA and/or kV according to patient size 3. Use of iterative reconstruction technique FINDINGS: The bibasilar lungs are clear. No evidence of free air identified in the abdomen.The evaluation of th e solid organs is limited due to lack of IV contrast. The evaluation of bowel is limited due to lack of oral contrast. Mild decreased attenuation noted in the liver likely hepatic steatosis. Cholecystectomy changes iden tified. The spleen, adrenals grossly appears unremarkable. The stomach is mildly distended. The visualized pancreas grossly appears unremarkable. Mild air diste nded small bowel loops left mid abdomen.. Liquid stool identified in the colon. No evidence of intrarenal collecting system calculi or hydronephrosis. Enlarged appearing uterus part icularly in the fundus could be moderate size fibroid. Urinary bladder is mildly distended Moderate aortic atherosclerosis Moderate degenerative changes lumbar spine. Lumbosacral hardware identified at L5-S1 vertebral level. IMPRESSION: 1. No evidence of intrarenal collecting system calculi or hydronephrosis. 2. Mild air distended small bowel loops left mid abdomen, nonspecific, could be mild enteritis. Liqu id stool identified in the colon could be due to diarrhea. 3. Enlarged appearing uterus particularly in the fundus likely moderate size fibroid. Electronically signed by: Federico Dinero MD (11/24/2021 11:03 AM) [id number]
[2021-11-24] MEDS ORDERED: LIDO1ADH78 TP (11:21)
[2021-11-24] MEDS ORDERED: CYCL10TA19 PO (11:21)
[2021-11-24] MEDS ORDERED: HYDR-2155 PO (11:21)
[2021-11-24] MEDS ORDERED: HYDROcodone/APAP 5/325MG 1 TAB TABLET PO ONE (11:30)
== END 2021-11-24 11:55 | disposition home or self-care (01) ==
LOC: ER 08:45
DX: M54.59 Other low back pain (principal); G89.29 Other chronic pain; Z77.22 Contact with and (suspected) exposure to environmental tobacco smoke (acute) (chronic)
CPT/HCPCS: 72100; 74176; 81001; 96372; 99285; J1885; J2270